=== PATIENT | male | born 1980 | race Caucasian/White ===

== ENCOUNTER 2016-10-25 17:32 | Emergency (ER) | payer OTHER ==
[~2016-10-25] VITALS: Ht 177.8 cm; Wt 75.0 kg
[~2016-10-25 17:32] MED LIST: BIOT1000 PO; DHEA50CA PO; METHY10 PO; MULT-65 PO
[2016-10-25 17:35] VITALS: BP 146/84; PULSE 86; RESP 14; TEMP 97.8; O2SAT 96
--- NOTE | 2016-10-25 17:49 | PD ---
HPI Chief Complaint: Exposure to Blood/Body Fluids Time Seen by Provider: 17:49 Travel History International Travel<30 days: Yes Contact w/Intl Traveler<30days: Yes Name of Country Traveled to: [place] Traveled to known affect area: No History of Present Illness HPI 36-year-old male presents to the emergency department for evaluation blood exposure. 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 States that the patient was banging his head and blood splash from the patient' s laceration into his right eye. States that he did irrigate his eye for about 3 minutes. The patient denies any blurred vision, eye redness or drainage, eye pain. States that the source patient has a known history of psychiatric illnesses but unsure of history of IV drug use, HIV or hepatitis. No other complaints. PFSH Past Medical History Cancer: No Cardiovascular Problems: No Diabetes: No Endocrine: No Genitourinary: No Hepatitis: No Hiatal Hernia: No Immune Disorder: No Musculoskeletal: No Neurologic: No Psychiatric: Yes (ADHD) Reproductive: No Respiratory: Yes (SLEEP APNEA) Sleep Apnea: Yes Thyroid Disease: No Influenza Vaccination: No Past Surgical History Abdominal Surgery: Yes (RIGHT INGUINIAL HERNIA SURGERY) AICD: No Cardiac Surgery: No Ear Surgery: No Endocrine Surgery: No Eye Surgery: No Genitourinary Surgery: No Gynecologic Surgery: No Joint Replacement: No Oral Surgery: No Pacemaker: No Thoracic Surgery: No Other Surgery: Yes Social History Alcohol Use: Yes (OCC) Tobacco Use: No Substance Use: No Allergies-Medications (Allergen,Severity, Reaction): Coded Allergies: No Known Allergies (Verified , 10/25/16) Reported Meds & Prescriptions Reported Meds & Active Scripts Active Reported Biotin 1,000 Mcg Tab 1,000 Mg PO DAILY Dhea (Prasterone (DHEA)) 50 Mg Cap 1 Tab PO DAILY Multi-Vitamin Daily (Multiple Vitamin) 1 Tab Tab 1 Tab PO DAILY Ritalin IR (Methylphenidate HCl) 10 Mg Tab 10 Mg PO DAILY PRN Review of Systems Except as stated in HPI: all other systems reviewed are Neg Physical Exam Narrative GENERAL: Well-nourished and well-developed pleasant male patient in no acute distress who is nontoxic appearing. SKIN: Warm and dry. HEAD: Normocephalic and atraumatic. EYES: No injection, drainage, or hyphema noted. PERRLA. EOMI. ENT: No nasal drainage noted. Oropharynx is clear. NECK: Supple and the trachea is midline. CARDIOVASCULAR: Regular rate and rhythm. RESPIRATORY: Breath sounds are equal bilaterally with no accessory muscle use, wheezing, rhonchi, or crackles. MUSCULOSKELETAL: No obvious deformities, swelling, cyanosis, or ecchymosis is present throughout the upper and lower extremities. NEUROLOGICAL: Awake, alert, and oriented. Normal speech and gait. Cranial nerves are grossly intact. Data Data Last Documented VS Vital Signs Date Time Temp Pulse Resp B/P Pulse Ox O2 Delivery O2 Flow Rate FiO2 10/25/16 17:35 97.8 86 14 146/84 96 MDM Medical Decision Making Medical Screen Exam Complete: Yes Emergency Medical Condition: Yes Differential Diagnosis Blood exposure versus post exposure prophylaxis versus medical clearance Narrative Course 36-year-old male presents to the emergency department for evaluation of blood exposure into his right eye. Patient is afebrile, vital signs are stable. Physical examination is unremarkable. Discussed risks and benefits of PEP and the patient is offered post exposure prophylactic therapy for HIV and elects not to receive these medications at this time. He wishes to wait until the source patient's HIV results have returned. Patient is given information on post exposure prophylaxis. Advised to follow-up with his PCP or the health department. Patient verbalizes understanding and agreement with treatment plan. I discussed the case with my attending physician Dr. Ellis who is aware of the patients history, physical examination findings, and treatment plan. Diagnosis Primary Impression: Exposure to blood Referrals: Primary Care Physician Patient Instructions: Postexposure Prophylaxis (ED), General Instructions Additional Instructions: Follow-up with your Primary Care Physician. Return to the ED for any acute worsening of symptoms. Med/Other Pt SpecificInfo: No Change to Meds Disposition: 01 DISCHARGE HOME Condition: Stable [place] Infante Oct 25, 2016 17:49
[2016-10-28 12:20] LABS: HEPATITIS B SURFACE ANTIBODY 83.4 mIU/mL
== END 2016-10-25 18:41 | disposition home or self-care (01) ==
LOC: NEPD 17:32
DX: Z77.21 Contact with and (suspected) exposure to potentially hazardous body fluids (principal); X58.XXXA Exposure to other specified factors, initial encounter; Y93.F9 Activity, other caregiving; Y92.89 Other specified places as the place of occurrence of the external cause; Y99.0 Civilian activity done for income or pay
CPT/HCPCS: 86317; 86703; 86803; 99282